=== PATIENT | female | born 2000 | race American Indian/Alaskan Native ===

== ENCOUNTER 2019-06-05 18:37 | Emergency (ER) | payer BC ==
[2019-06-05 18:44] VITALS: BP 117/61
== END 2019-06-05 20:40 | disposition left against medical advice (07) ==
LOC: ED 18:37
DX: G43.909 Migraine, unspecified, not intractable, without status migrainosus (principal); Z53.21 Procedure and treatment not carried out due to patient leaving prior to being seen by health care provider